=== PATIENT | male | born 1945 | race Caucasian/White ===

== ENCOUNTER 2017-03-29 05:04 | Outpatient (CLI) | payer MEDICARE, BC | END 2017-03-29 23:59 | disposition home or self-care (01) | LOC: DIABETIC 05:04 | PROVIDERS: ATTEND Specialist | DX: E11.65 Type 2 diabetes mellitus with hyperglycemia (principal); F17.200 Nicotine dependence, unspecified, uncomplicated | CPT/HCPCS: G0108 ==

== ENCOUNTER 2017-07-12 04:47 | Outpatient (CLI) | payer MEDICARE, BC | END 2017-07-12 23:59 | disposition home or self-care (01) | LOC: DIABETIC 04:47 | PROVIDERS: ATTEND Specialist | DX: E11.65 Type 2 diabetes mellitus with hyperglycemia (principal); Z87.891 Personal history of nicotine dependence | CPT/HCPCS: G0108 ==